=== PATIENT | male | born 1975 | race African-American/Black ===

== ENCOUNTER 2021-09-19 13:13 | Outpatient (REF) | payer BC, SELFPAY ==
--- NOTE | ~2021-09-19 | XR_ITS ---
EXAMINATION: XR KNEE, LEFT CLINICAL INFORMATION: Synovial cyst of popliteal space. COMPARISON: None TECHNIQUE: Four views of the left knee. FINDINGS: No acute fractures or malalignment. No significant degenerative changes. No erosions or chondrocalcinosis. Indeterminate soft tissue fullness in the popliteal region, posterior compartment of the knee. Small joint effusion. XR/XR knee LT 3V IMPRESSION: No acute osseous abnormalities. Nonspecific soft tissue fullness in the posterior compartment of the knee, recommend correlation with a targeted ultrasound or MR. Small joint effusion.
[2021-09-19 14:32] LABS: Alanine Aminotransferase 65 U/L (0-40); Albumin Level 4.7 g/dL (3.5-5.0); Alkaline Phosphatase 67 U/L (39-117); Anion Gap 16 (12-20); Aspartate Amino Transferase 37 U/L (5-37); Bilirubin Total 0.9 mg/dL (0.0-1.0); Blood Urea Nitrogen 12 mg/dL (9-16); Calcium 10.2 mg/dL (8.4-10.2); Carbon Dioxide 27 mmol/L (22-29); Chloride 102 mmol/L (96-108); Cholesterol 211 mg/dL; Estimated Glomerular Filt Rate > 60; Glucose Fasting 94 mg/dL (60-99); HDL Cholesterol 51 mg/dL; LDL Cholesterol Calculated 146 mg/dl; Potassium 4.7 mmol/L (3.3-5.1); Sodium 140 mmol/L (135-145); Total Protein 8.1 g/dL (6.5-8.0); Triglycerides 74 mg/dL
[2021-09-19 14:50] LABS: Prostate Specific Antigen Scr 0.48 ng/mL (<0.05-4.0); TSH reflex Free T4 0.87 uIU/mL (0.32-4.0)
== END 2021-09-19 13:14 | disposition home or self-care (01) ==
LOC: HO.XRAY 13:13
PROVIDERS: PCP Physician Assistant; Visit Provider Physician Assistant
DX: Z12.5 Encounter for screening for malignant neoplasm of prostate (principal); Z13.29 Encounter for screening for other suspected endocrine disorder; Z13.220 Encounter for screening for lipoid disorders; M71.20 Synovial cyst of popliteal space [Baker], unspecified knee
CPT/HCPCS: 36415; 73562; 80053; 80061; 84153; 84443

== ENCOUNTER 2022-01-21 10:15 | Outpatient (REF) | payer BC, SELFPAY ==
--- NOTE | ~2022-01-21 | US_ITS ---
EXAMINATION: US ABDOMEN COMPLETE CLINICAL INFORMATION: Abnormal levels of other serum enzymes. COMPARISON: None TECHNIQUE: Real-time imaging of the abdominal viscera. FINDINGS: PANCREAS: The head and body of the pancreas are normal. The tail is not well visualized due to bowel gas. ABDOMINAL AORTA: The proximal, mid, and distal segments are normal in caliber. INFERIOR VENA CAVA: Visualized portions are normal. LIVER: Normal. The liver is normal in size. The liver contour is normal. Parenchymal echogenicity is normal. No focal hepatic lesion. There is no intrahepatic biliary duct dilatation seen. GALLBLADDER: There is minimal linear echogenic debris seen in the gallbladder. The gallbladder is otherwise normal. No gallstones are seen. COMMON BILE DUCT: Normal in caliber measuring 0.2 cm in diameter. RIGHT KIDNEY: Normal. No hydronephrosis. No renal calculi or focal parenchymal lesions. The kidney measures 10.2 cm in maximum dimension. LEFT KIDNEY: Normal. No hydronephrosis. No renal calculi or focal parenchymal lesions. The kidney measures 11.4 cm in maximum dimension. SPLEEN: Normal. The spleen measures 8.5 cm in maximum dimension. FREE FLUID: None. US/US abdomen complete IMPRESSION: Limited visualization of the tail the pancreas otherwise unremarkable exam.
== END 2022-01-21 10:16 | disposition home or self-care (01) ==
LOC: HO.US 10:15
PROVIDERS: Visit Provider Physician Assistant
DX: R74.8 Abnormal levels of other serum enzymes (principal)
CPT/HCPCS: 76700

== ENCOUNTER 2022-11-26 14:16 | Outpatient (AMB) | payer BC, SELFPAY ==
[2022-11-26 14:36] VITALS: BP 118/80; PULSE 65; O2SAT 98; BMI 23.3
--- NOTE | 2022-11-26 14:36 | A.OFFPC_ITS ---
Vital Signs 11/26/22 14:36 Height 6 ft 3 in Weight 186 lb 4 oz BMI 23.3 BP 118/80 Blood Pressure Location Lt brachial Position Sitting Pulse 65 Pulse Source Pulse Oximeter Pulse Oximetry (%) 98 Oxygen Delivery Method Room Air Intake Visit Reasons: PE Intake Note: Patient is here today for a physical. Parking Officer Required: No Accompanied by: Friend-Mike Allergies No Known Allergies Allergy (Verified 11/26/22 15:01) Medication List - Last Reconciled 11/26/22 by Salo Lerner PA-C No Known Home Meds Tobacco use date assessed: 11/26/22 Dental Screening Dental Screen Date: 11/26/22 Did you have a dental visit in the last 12 months?: Yes Did you have a dental problem in the last 6 months where you did not have access to dental care?: No Was dental information given to patient?: Patient has dentist HPI PE HPI Details Patient is a 47-year-old male here today for routine annual physical. Patient has a past medical history significant for borderline high cholesterol, elevated liver enzymes. 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 Has had attempts on removal in the past though have grown back. .. Elevated liver enzymes: Unclear etiology to patient's elevated liver enzyme, was sent for ultrasound abdomen which did not show any evidence of fatty liver disease. .. Borderline high total cholesterol: Continues to work on low-cholesterol diet. No medication warranted at this time. Colon cancer screening: Considering Cologuard or colonoscopy. Will call to let us now. 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 1. Little interest or pleasure in doing things: not at all 2. Feeling down, depressed, or hopeless: not at all 3. Trouble falling or staying asleep, or sleeping too much: not at all 4. Feeling tired or having little energy: not at all 5. Poor appetite or overeating: not at all 6. Feeling bad about yourself - or that you are a failure or have let yourself or your family down: not at all 7. Trouble concentrating on things, such as reading the newspaper or watching television: not at all 8. Moving or speaking so slowly that other people could have noticed. Or the opposite - being so fidgety or restless that you have been moving around a lot more than usual: not at all 9. Thoughts that you would be better off or of hurting yourself in some wa y: not at all Total score: 0 Depression Screening Interpretation: Negative 77746 - PHQ-9 Billing: Yes Source: Developed by Drs. Xavier Nguyễn, Tonia Marie, Elian Frank and colleagues, with an educational lucy from [employer] Thrive Questionnaire Date Thrive assessed: 11/26/22 I am a: Patient What is your living situation today?: I have a steady place to live Within the past 12 months, did the food you bought not last and you didn't have the money to get more?: Never true Within the past 12 months, did you worry whether your food would run out before you got money to buy more?: Never true Do you have trouble paying for medicines?: No Do you have trouble getting transportation to medical appointments?: No Do you have trouble paying your heating and electricity bill?: No Do you have trouble taking care of your child, family member or friend?: No Do you have trouble with day-to-day activities such as bathing, preparing meals, shopping, managing finances, etc.?: No Are you currently unemployed and looking for a job?: No Are you interested in more education?: No Currently or been in a relationship where the following occur: no concerns reported AUDIT C Alcohol Use Questionnaire (AUDIT-C) 1. How often do you have a drink containing alcohol?: Never 3. How often do you have six or more drinks on one occasion?: Never Total Score: 0 JOSE-7 AMB Questionnaire JOSE-7 Date JOSE - 7 assessed: 11/26/22 Feeling nervous, anxious, or on edge: 0 = Not at all Not being able to stop or control worryin = Not at all Worrying too much about different things: 0 = Not at all Trouble relaxin = Not at all Being so restless that it is hard to sit still: 0 = Not at all Becoming easily annoyed or irritable: 0 = Not at all Feeling afraid as if something awful might happen: 0 = Not at all Total JOSE-7 score (0-4 normal; 5-9 mild; 10-14 moderate; 15-21 severe): 0 Source: Developed by Drs. Xavier Nguyễn, Tonia Marie, Elian Frank and colleagues, with an educational lucy from [employer] OJSE-7 Assessment Billing JOSE-7 Assessment Tool: JOSE-7 Assessment 61302 Review of Systems Const Denies body aches, Denies chills, Denies excessive sweating, Denies fatigue, Denies fever(s) and Denies headache(s) Eyes Denies blurry vision ENT Denies dysphagia, Denies vertigo, Denies dizziness, Denies headache(s), Denies hearing loss and Denies tinnitus Card Denies chest pain, Denies chest pain with activity, Denies syncope, Denies irregular heart rhythm and Denies dyspnea Resp Denies chest congestion, Denies cough, Denies hemoptysis, Denies dyspnea and Denies wheezing GI Denies abdominal pain, Denies melena, Denies hematochezia, Denies coffee ground emesis, Denies dysphagia, Denies diarrhea, Denies nausea and Denies vomiting Denies difficulty urinating, Denies dysuria, Denies urinary frequency, Denies urinary hesitancy and Denies urinary urgency Musc Denies arthralgias, Denies limited range of motion, Denies muscle cramps and Denies muscle weakness Skin/Breast Denies rash and Denies skin ulcer Neuro Denies Abnormal speech present, Denies confusion, Denies vertigo, Denies dizziness, Denies syncope, Denies headache(s), Denies memory loss and Denies seizure-like activity Psych Denies anxiety, Denies confusion, Denies depression, Denies memory loss, Denies panic attacks and Denies paranoia Endo Denies excessive sweating, Denies fatigue, Denies flushing, Denies polydipsia and Denies polyuria Aller/Immun Denies wheezing Physical exam (Primary Care) Vital Signs: Last Vital Signs Pulse 65 11/26/22 14:36 BP 118/80 11/26/22 14:36 Pulse Ox 98 11/26/22 14:36 Oxygen Delivery Method Room Air 11/26/22 14:36 BMI result Body Mass Index 23.3 Tobacco/Smoking Status: Tobacco use Status Tobacco use date assessed 11/26/22 11/26/22 14:52 Patient Tobacco Use Status Never used Tobacco 11/26/22 14:36 e-Cigarette/Vaping Use Never Used 11/26/22 14:36 PHQ-9: PHQ-9 Score PHQ-9: Total score 0 11/26/22 14:52 Depression Screening Interpretation: Negative Thrive Assessment: Date of Thrive Assessment Date Thrive assessed 11/26/22 11/26/22 14:52 Currently or been in a relationship where the following occur: no concerns reported Const General: cooperative, comfortable, no acute distress, alert and awake; No confusion Orientation/consciousness: oriented to person, oriented to place, patient oriented x3 and No confusion HENMT Head: Yes normocephalic Ears: external ears normal and TM's normal bilaterally Face and sinus: No sinus tenderness Mouth: Normal oral and palatal mucosa present and tongue normal Teeth and gingiva: dentition normal and gingiva normal Throat: Yes posterior oropharynx normal, Yes tonsils normal and Yes uvula midline Eyes Conjunctivae: conjunctivae normal Sclerae: sclerae normal Pupils: Equal, round and reactive pupils present EOM: EOMs intact bilaterally Direct Ophthalmoscopy: No no photophobia Neck Neck: Yes no lymphadenopathy, No tender and Yes no JVD Thyroid: Thyroid normal Carotids: no bruits Chest Chest palpation & inspection: no tenderness Resp Effort & Inspection: normal respiratory effort, no audible wheezes, not labored and no stridor Auscultation: no crackles, no rales, no rhonchi and no wheezes Cardio Jugular venous distension: no JVD Rate: regular rate, not bradycardic and not tachycardic Rhythm: regular rhythm Bruits: no carotid bruits Peripheral pulses: Peripheral pulses 2+ throughout GI Inspection: Yes normal to inspection, No abdominal wall ecchymosis and No visible herniation Palpation (GI): Soft to palpation, nontender, no guarding, not rigid and No hepatosplenomegaly present Auscultation: normoactive bowel sounds General: Yes no CVA tenderness Back/Spine/Pelvis Back: no CVA tenderness and No back tenderness Cervical Spine: cervical ROM normal Thoracic/Lumbar Spine: thoracic and lumbar spine normal to inspection, straight leg raise negative bilaterally, No thoraco-lumbar ROM limited and No lumbar spinal tenderness Skin Lesions: no lesions Rashes: no rashes Wounds: no wounds Neuro General: oriented to person, oriented to place, patient oriented x3, CN's II-XI intact bilaterally and No confusion Cranial nerves: Yes Equal, round and reactive pupils present and Yes Normal accommodation reflex present Cognition (Neuro): normal cognition Speech: No Abnormal speech present Gait exam (Neuro): Normal gait present Motor exam (neuro): 5/5 motor strength present throughout Extrem Right upper extremity: full ROM; no cyanosis Left upper extremity: full ROM; no cyanosis Right lower extremity: no edema Left lower extremity: no edema Psych Appearance: grossly normal Mental Status: mental status grossly normal Affect: normal affect Attitude: cooperative Thought process: Normal thought process present Assessment and Plan Assessment & Plan (1) Annual physical exam: Code(s): Z00.00 - Encounter for general adult medical examination without abnormal findings (2) Pterygium: Code(s): H11.009 - Unspecified pterygium of unspecified eye Qualifiers: Laterality: bilateral Qualified Code(s): H11.003 - Unspecified pterygium of eye, bilateral Plan: As per HPI patient continues to suffer with pterygium bilaterally and would like to see an eye surgeon for permanent removal. (3) Borderline high cholesterol: Code(s): E78.9 - Disorder of lipoprotein metabolism, unspecified Plan: Patient's most recent lipid panel showing borderline elevated total cholesterol. Advised to continue working on lifestyle/ diet modifications (4) Elevated liver enzymes: Code(s): R74.8 - Abnormal levels of other serum enzymes Orders: Orders Prostate Specific Antigen Scr Today Z12.5 - Encounter for screening for malignant neoplasm of prostate Comprehensive [place]. Panel Fast Today E78.9 - Disorder of lipoprotein metabolism, unspecified Lipid Panel Today E78.9 - Disorder of lipoprotein metabolism, unspecified Referrals Ophthalmology Referral H11.003 - Unspecified pterygium of eye, bilateral Coding Level of Care Code Est Pt Prev Care 40-64y(64697) Diagnoses Annual physical exam Z00.00 Pterygium H11.003 Laterality: bilateral Borderline high cholesterol E78.9 Elevated liver enzymes R74.8 Additional Codes JOSE-7 Assessment Billing - JOSE-7 Assessment Tool: JOSE-7 Assessment [id number] ([id number])
== END 2022-11-26 15:25 | disposition home or self-care (01) ==
PROVIDERS: PCP Physician Assistant; Visit Provider Physician Assistant
DX: Z00.00 Encounter for general adult medical examination without abnormal findings (principal); H11.003 Unspecified pterygium of eye, bilateral; E78.9 Disorder of lipoprotein metabolism, unspecified; R74.8 Abnormal levels of other serum enzymes
CPT/HCPCS: 99396

== ENCOUNTER 2022-12-17 07:36 | Outpatient (REF) | payer BC, SELFPAY ==
[2022-12-17 12:14] LABS: Alanine Aminotransferase 34 U/L (0-40); Albumin Level 4.7 g/dL (3.5-5.0); Alkaline Phosphatase 67 U/L (39-117); Anion Gap 14 (12-20); Aspartate Amino Transferase 26 U/L (5-37); Bilirubin Total 0.7 mg/dL (0.0-1.0); Blood Urea Nitrogen 9 mg/dL (9-16); Calcium 9.8 mg/dL (8.4-10.2); Carbon Dioxide 29 mmol/L (22-29); Chloride 101 mmol/L (96-108); Cholesterol 202 mg/dL (<200); Estimated Glomerular Filt Rate > 60; Glucose Fasting 102 mg/dL (60-99); HDL Cholesterol 49 mg/dL (>40); LDL Cholesterol Calculated 135 mg/dL (<100); Potassium 3.8 mmol/L (3.3-5.1); Sodium 140 mmol/L (135-145); Total Protein 7.9 g/dL (6.5-8.0); Triglycerides 90 mg/dL (<150)
[2022-12-17 12:30] LABS: Prostate Specific Antigen Scr 0.93 ng/mL (<0.05-4.0)
== END 2022-12-17 07:37 | disposition home or self-care (01) ==
LOC: HO.HMGCLDS 07:36
PROVIDERS: PCP Physician Assistant; Visit Provider Physician Assistant
DX: Z12.5 Encounter for screening for malignant neoplasm of prostate (principal); E78.9 Disorder of lipoprotein metabolism, unspecified
CPT/HCPCS: 36415; 80053; 80061; 84153

== ENCOUNTER → 2023-09-15 07:22 | Outpatient (REF) | payer BC, SELFPAY ==
--- NOTE | 2023-09-15 07:27 | ECG_ITS ---
Test Reason : pre op Blood Pressure : / mmHG Vent. Rate : 066 BPM Atrial Rate : 066 BPM P-R Int : 160 ms QRS Dur : 098 ms QT Int : 380 ms P-R-T Axes : 070 037 064 degrees QTc Int : 398 ms Normal sinus rhythm Normal ECG No previous ECGs available Referred By: Salo Lerner Electronically Signed By:AYAH ARANGO
== END ==
LOC: HO.CARD 07:22
PROVIDERS: PCP Physician Assistant; Visit Provider Physician Assistant
DX: Z01.818 Encounter for other preprocedural examination (principal)
CPT/HCPCS: 93005

== ENCOUNTER → 2023-09-15 07:27 | Outpatient (BNV) | payer BC, SELFPAY | PROVIDERS: PCP Physician Assistant; Visit Provider Internal Medicine | DX: Z01.818 Encounter for other preprocedural examination (principal) | CPT/HCPCS: 93010 ==

== ENCOUNTER 2023-10-01 12:45 | Outpatient (AMB) | payer BC, SELFPAY ==
[2023-10-01 13:02] VITALS: BP 122/76; PULSE 74; O2SAT 98; BMI 22.7
--- NOTE | 2023-10-01 13:02 | A.OFFPC_ITS ---
Vital Signs 10/01/23 13:02 Height 6 ft 3 in Weight 182 lb BMI 22.7 BP 122/76 Blood Pressure Location Lt brachial Position Sitting Pulse 74 Pulse Source Pulse Oximeter Pulse Oximetry (%) 98 Oxygen Delivery Method Room Air Intake Visit Reasons: Right eye surgery scheduled w/ 10/12 Allergies No Known Allergies Allergy (Verified 10/01/23 13:09) Medication List - Last Reconciled 10/01/23 by Salo Lerner PA-C No Known Home Meds Tobacco use date assessed: 10/01/23 Dental Screening Dental Screen Date: 10/01/23 Did you have a dental visit in the last 12 months?: Yes Did you have a dental problem in the last 6 months where you did not have access to dental care?: No Was dental information given to patient?: Patient has dentist HPI Right eye surgery scheduled w/ 10/12 HPI Details Patient is a 48-year-old male here today for preop visit. Patient is due for right eye surgery 10/13/2023. Patient has a past medical history significant for borderline high cholesterol, elevated liver enzymes. Patient has no past medical history significant for CVA, mi or Congestive heart failure. Patient does not take any medications at this time. Most recent EKG G showing normal sinus rhythm. Has had previous eye surgery to remove fibrous tissue though was not effective and grew back. .. .. Borderline high total cholesterol: Continues to work on low-cholesterol diet. No medication warranted at this time. [facility] Medical History Primary immunodeficiency with trpr-ggoujxz-zntpp-rubella (MMR) vaccine viral infection Family History Mother Type II diabetes mellitus Father Prostate cancer Social History Housing: House Alcohol intake: current Alcohol intake frequency: holidays/special occasions only Alcohol type: beer Patient Tobacco Use Status: Never used Tobacco e-Cigarette/Vaping Use: Never Used service: No Current occupational status: employed 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 Cognitive needs: No Hearing needs: No Vision needs: No Questionnaire PHQ-9 Over the last 2 weeks, how often have you been bothered by any of the following problems? 1. Little interest or pleasure in doing things: not at all 2. Feeling down, depressed, or hopeless: not at all 3. Trouble falling or staying asleep, or sleeping too much: not at all 4. Feeling tired or having little energy: not at all 5. Poor appetite or overeating: not at all 6. Feeling bad about yourself - or that you are a failure or have let yourself or your family down: not at all 7. Trouble concentrating on things, such as reading the newspaper or watching television: not at all 8. Moving or speaking so slowly that other people could have noticed. Or the opposite - being so fidgety or restless that you have been moving around a lot more than usual: not at all 9. Thoughts that you would be better off or of hurting yourself in some way: not at all Total score: 0 Depression Screening Interpretation: Negative Depression Screening Done: Yes 62588 - PHQ-9 Billing: Yes Source: Developed by Drs. Xavier Nguyễn, Tonia Marie, Elian Frank and colleagues, with an educational lucy from [email or web address]. Thrive Questionnaire Date Thrive assessed: 10/01/23 I am a: Patient What is your living situation today?: I have a steady place to live Within the past 12 months, did the food you bought not last and you didn't have the money to get more?: Never true Within the past 12 months, did you worry whether your food would run out before you got money to buy more?: Never true Do you have trouble paying for medicines?: No Do you have trouble getting transportation to medical appointments?: No Do you have trouble paying your heating and electricity bill?: No Do you have trouble taking care of your child, family member or friend?: No Do you have trouble with day-to-day activities such as bathing, preparing meals, shopping, managing finances, etc.?: No Are you currently unemployed and looking for a job?: No Are you interested in more education?: No Currently or been in a relationship where the following occur: no concerns reported THRIVE Score: 0 AUDIT C Alcohol Use Questionnaire (AUDIT-C) 1. How often do you have a drink containing alcohol?: Never 3. How often do you have six or more drinks on one occasion?: Never Total Score: 0 OJSE-7 AMB Questionnaire JOSE-7 Date JOSE - 7 assessed: 10/01/23 Feeling nervous, anxious, or on edge: 0 = Not at all Not being able to stop or control worryin = Not at all Worrying too much about different things: 0 = Not at all Trouble relaxin = Not at all Being so restless that it is hard to sit still: 0 = Not at all Becoming easily annoyed or irritable: 0 = Not at all Feeling afraid as if something awful might happen: 0 = Not at all Total JOSE-7 score (0-4 normal; 5-9 mild; 10-14 moderate; 15-21 severe): 0 Source: Developed by Drs. Xavier Nguyễn, Tonia Marie, Elian Frank and colleagues, with an educational lucy from [email or web address]. JOSE-7 Assessment Billing JOSE-7 Assessment Tool: JOSE-7 Assessment 24641 Review of Systems Const Denies headache(s) Eyes Denies loss of vision ENT Denies vertigo, Denies dizziness, Denies headache(s) and Denies sore throat Card Denies chest pain, Denies leg edema and Denies lightheadedness Resp Denies cough, Denies hemoptysis and Denies wheezing GI Denies abdominal pain, Denies melena, Denies constipation, Denies diarrhea and Denies vomiting Denies dysuria, Denies urinary frequency and Denies urinary urgency Musc Denies arthralgias, Denies joint swelling, Denies numbness and Denies tingling Neuro Denies Abnormal speech present, Denies behavioral changes, Denies vertigo, Denies dizziness, Denies headache(s), Denies loss of vision, Denies memory loss, Denies numbness and Denies tingling Psych Denies anxiety, Denies behavioral changes, Denies depression, Denies memory loss and Denies panic attacks Edi/Lymph Denies easy bleeding and Denies easy bruising Aller/Immun Denies wheezing Physical exam (Primary Care) Vital Signs: Last Vital Signs Pulse 74 10/01/23 13:02 BP 122/76 10/01/23 13:02 Pulse Ox 98 10/01/23 13:02 Oxygen Delivery Method Room Air 10/01/23 13:02 BMI result Body Mass Index 22.7 Tobacco/Smoking Status: Tobacco use Status Tobacco use date assessed 10/01/23 10/01/23 13:07 Patient Tobacco Use Status Never used Tobacco 10/01/23 13:07 e-Cigarette/Vaping Use Never Used 10/01/23 13:07 PHQ-9: PHQ-9 Score PHQ-9: Total score 0 10/01/23 13:11 Depression Screening Interpretation: Negative Thrive Assessment: Date of Thrive Assessment Date Thrive assessed 10/01/23 10/01/23 13:07 Currently or been in a relationship where the following occur: no concerns reported Const General: healthy appearing, no acute distress, alert and awake Nutritional Appearance: well nourished Orientation/consciousness: oriented to person, oriented to place and oriented to time HENMT Ears: TM's normal bilaterally General nose exam: Normal nasal mucous membranes and turbinates present Eyes Other: Notable right eye fibrous tissue Conjunctivae: abnormal conjunctivae Sclerae: abnormal sclerae Pupils: Equal, round and reactive pupils present Neck Neck: Yes no lymphadenopathy and Yes no JVD Thyroid: Thyroid normal Carotids: no bruits Resp Effort & Inspection: normal respiratory effort and not tachypneic Auscultation: no crackles, no rales, no rhonchi and no wheezes Cardio Rate: regular rate Rhythm: regular rhythm Heart sounds: no murmurs and normal S1 and S2 GI Palpation (GI): Soft to palpation, nontender, no hepatomegaly and no splenomegaly Auscultation: normal bowel sounds Skin General skin exam: no rashes or lesions noted and dry skin Neuro General: oriented to person, oriented to place and oriented to time Cranial nerves: Yes Equal, round and reactive pupils present Speech: No Abnormal speech present Gait exam (Neuro): Normal gait present Motor exam (neuro): no tremor noted Extrem Right upper extremity: full ROM Left upper extremity: full ROM Right lower extremity: full ROM; no edema Left lower extremity: full ROM; no edema Psych Mental Status: mental status grossly normal Speech and movement: Normal speech and movement present Affect: normal affect Attitude: cooperative Thought process: Normal thought process present Assessment and Plan Assessment & Plan (1) Pre-op evaluation: Code(s): Z01.818 - Encounter for other preprocedural examination Plan: Patient's Vitals and labs are stable. EKG showing normal sinus rhythm. Patient medically clear for needed right eye surgery (2) Pterygium: Code(s): H11.009 - Unspecified pterygium of unspecified eye Qualifiers: Laterality: bilateral Qualified Code(s): H11.003 - Unspecified pteryg ium of eye, bilateral Plan: As above Orders: Orders Comprehensive [place]. Panel Fast 3 Months E78.9 - Disorder of lipoprotein metabolism, unspecified Complete Blood Count no Diff 3 Months E78.9 - Disorder of lipoprotein metabolism, unspecified Prostate Specific Antigen Scr 3 Months E78.9 - Disorder of lipoprotein metabolism, unspecified, Z12.5 - Encounter for screening for malignant neoplasm of prostate Lipid Panel 3 Months E78.9 - Disorder of lipoprotein metabolism, unspecified Coding Level of Care Code Est Pt Level 3 (84244) Diagnoses Pre-op evaluation Z01.818 Pterygium of both eyes H11.003 Laterality: bilateral Additional Codes JOSE-7 Assessment Billing - JOSE-7 Assessment Tool: JOSE-7 Assessment [id number] ([id number])
== END 2023-10-01 13:26 | disposition home or self-care (01) ==
PROVIDERS: PCP Physician Assistant; Visit Provider Physician Assistant
DX: H11.003 Unspecified pterygium of eye, bilateral (principal); Z01.818 Encounter for other preprocedural examination
CPT/HCPCS: 99213

== ENCOUNTER 2023-10-01 13:30 | Outpatient (REF) | payer BC, SELFPAY ==
[2023-10-01 14:02] LABS: Hematocrit 42.9 % (42.0-52.0); Hemoglobin 14.7 g/dl (14.0-18.0); Mean Corpuscular HGB Conc 34.3 g/dl (31.0-36.0); Mean Corpuscular Hemoglobin 30.4 pg (27.0-33.0); Mean Corpuscular Volume 88.6 fL (80.0-98.0); Mean Platelet Volume 10.6 fL (9.4-12.4); Platelet Count 237 X10*3/uL (160-400); Red Blood Count 4.84 X10*6/uL (4.60-5.80); Red Cell Distribution Width 12.4 % (11.0-16.0); White Blood Count 5.5 X10*3/uL (4.8-10.8)
[2023-10-01 14:27] LABS: Anion Gap 9 (12-20); Blood Urea Nitrogen 12 mg/dL (9-16); Calcium 9.8 mg/dL (8.4-10.2); Carbon Dioxide 30 mmol/L (22-29); Chloride 102 mmol/L (96-108); Estimated Glomerular Filt Rate > 60; Glucose Random 89 mg/dL (60-115); Potassium 4.2 mmol/L (3.3-5.1); Sodium 137 mmol/L (135-145)
== END 2023-10-01 13:31 | disposition home or self-care (01) ==
LOC: HO.LAB 13:30
PROVIDERS: PCP Physician Assistant; Visit Provider Physician Assistant
DX: Z01.812 Encounter for preprocedural laboratory examination (principal)
CPT/HCPCS: 36415; 80048; 85027

== ENCOUNTER 2024-01-06 14:12 | Outpatient (AMB) | payer BC, SELFPAY ==
--- NOTE | 2024-01-06 14:22 | MHC.PC.OV ---
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 .. Borderline high total cholesterol: Continues to work on low-cholesterol diet. No medication warranted at this time. 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 1. Little interest or pleasure in doing things: not at all 2. Feeling down, depressed, or hopeless: not at all 3. Trouble falling or staying asleep, or sleeping too much: not at all 4. Feeling tired or having little energy: not at all 5. Poor appetite or overeating: not at all 6. Feeling bad about yourself - or that you are a failure or have let yourself or your family down: not at all 7. Trouble concentrating on things, such as reading the newspaper or watching television: not at all 8. Moving or speaking so slowly that other people could have noticed. Or the opposite - being so fidgety or restless that you have been moving around a lot more than usual: not at all 9. Thoughts that you would be better off or of hurting yourself in some way: not at all Total score: 0 Depression Screening Interpretation: Negative Depression Screening Done: Yes 88070 - PHQ-9 Billing: Yes Source: Developed by Drs. Xavier Nguyễn, Tonia Marie, Elian Frank and colleagues, with an educational lucy from [employer]. Thrive Questionnaire Date Thrive assessed: 01/05/24 I am a: Patient What is your living situation today?: I have a steady place to live Within the past 12 months, did the food you bought not last and you didn't have the money to get more?: Never true Within the past 12 months, did you worry whether your food would run out before you got money to buy more?: Never true Do you have trouble paying for medicines?: No Do you have trouble getting transportation to medical appointments?: No Do you have trouble paying your heating and electricity bill?: No Do you have trouble taking care of your child, family member or friend?: No Do you have trouble with day-to-day activities such as bathing, preparing meals, shopping, managing finances, etc.?: No Are you currently unemployed and looking for a job?: No Are you interested in more education?: I choose not to answer this question Please select the resources that you would like help with: None Currently or been in a relationship where the following occur: No concerns reported THRIVE Score: 0 AUDIT C Alcohol Use Questionnaire (AUDIT-C) 1. How often do you have a drink containing alcohol?: Never 2. How many drinks containing alcohol do you have on a typical day when you are drinking?: 1 or 2 3. How often do you have six or more drinks on one occasion?: Never Total Score: 0 JOSE-7 AMB Questionnaire JOSE-7 Date JOSE - 7 assessed: 01/06/24 Feeling nervous, anxious, or on edge: 0 = Not at all Not being able to stop or control worryin = Not at all Worrying too much about different things: 0 = Not at all Trouble relaxin = Not at all Being so restless that it is hard to sit still: 0 = Not at all Becoming easily annoyed or irritable: 0 = Not at all Feeling afraid as if something awful might happen: 0 = Not at all Total JOSE-7 score (0-4 normal; 5-9 mild; 10-14 moderate; 15-21 severe): 0 Source: Developed by Drs. Xavier Nguyễn, Tonia Marie, Elian Frank and colleagues, with an educational lucy from [employer]. JOSE-7 Assessment Billing JOSE-7 Assessment Tool: JOSE-7 Assessment 15925 Review of Systems Const Denies body aches, Denies chills, Denies excessive sweating, Denies fatigue, Denies fever(s) and Denies headache(s) Eyes Denies blurry vision ENT Denies dysphagia, Denies vertigo, Denies dizziness, Denies headache(s), Denies hearing loss and Denies tinnitus Card Denies chest pain, Denies chest pain with activity, Denies syncope, Denies irregular heart rhythm and Denies dyspnea Resp Denies chest congestion, Denies cough, Denies hemoptysis, Denies dyspnea and Denies wheezing GI Denies abdominal pain, Denies melena, Denies hematochezia, Denies coffee ground emesis, Denies dysphagia, Denies diarrhea, Denies nausea and Denies vomiting Denies difficulty urinating, Denies dysuria, Denies urinary frequency, Denies urinary hesitancy and Denies urinary urgency Musc Denies arthralgias, Denies limited range of motion, Denies muscle cramps and Denies muscle weakness Skin/Breast Denies rash and Denies skin ulcer Neuro Denies Abnormal speech present, Denies confusion, Denies vertigo, Denies dizziness, Denies syncope, Denies headache(s), Denies memory loss and Denies seizure-like activity Psych Denies anxiety, Denies confusion, Denies depression, Denies memory loss, Denies panic attacks and Denies paranoia Endo Denies excessive sweating, Denies fatigue, Denies flushing, Denies polydipsia and Denies polyuria Aller/Immun Denies wheezing Physical exam (Primary Care) Vital Signs: Last Vital Signs Pulse 65 01/06/24 14:28 BP 120/84 01/06/24 14:28 Pulse Ox 100 01/06/24 14:28 Oxygen Delivery Method Room Air 01/06/24 14:28 BMI result Body Mass Index 23.7 Tobacco/Smoking Status: Tobacco use Status Tobacco use date assessed 10/01/23 01/06/24 14:22 Patient Tobacco Use Status Never used Tobacco 01/06/24 14:22 e-Cigarette/Vaping Use Never Used 01/06/24 14:22 PHQ-9: PHQ-9 Score PHQ-9: Total score 0 01/06/24 14:29 Depression Screening Interpretation: Negative Thrive Assessment: Date of Thrive Assessment Date Thrive assessed 01/05/24 01/06/24 14:22 Currently or been in a relationship where the following occur: No concerns reported Const General: cooperative, comfortable, no acute distress, alert and awake; No confusion Orientation/consciousness: oriented to person, oriented to place, patient oriented x3 and No confusion HENMT Head: Yes normocephalic Ears: external ears normal and TM's normal bilaterally Face and sinus: No sinus tenderness Mouth: Normal oral and palatal mucosa present and tongue normal Teeth and gingiva: dentition normal and gingiva normal Throat: Yes posterior oropharynx normal, Yes tonsils normal and Yes uvula midline Eyes Conjunctivae: conjunctivae normal Sclerae: sclerae normal Pupils: Equal, round and reactive pupils present EOM: EOMs intact bilaterally Direct Ophthalmoscopy: No no photophobia Neck Neck: Yes no lymphadenopathy, No tender and Yes no JVD Thyroid: Thyroid normal Carotids: no bruits Chest Chest palpation & inspection: no tenderness Resp Effort & Inspection: normal respiratory effort, no audible wheezes, not labored and no stridor Auscultation: no crackles, no rales, no rhonchi and no wheezes Cardio Jugular venous distension: no JVD Rate: regular rate, not bradycardic and not tachycardic Rhythm: regular rhythm Bruits: no carotid bruits Peripheral pulses: Peripheral pulses 2+ throughout GI Inspection: Yes normal to inspection, No abdominal wall ecchymosis and No visible herniation Palpation (GI): Soft to palpation, nontender, no guarding, not rigid and No hepatosplenomegaly present Auscultation: normoactive bowel sounds General: Yes no CVA tenderness Back/Spine/Pelvis Back: no CVA tenderness and No back tenderness Cervical Spine: cervical ROM normal Thoracic/Lumbar Spine: thoracic and lumbar spine normal to inspection, straight leg raise negative bilaterally, No thoraco-lumbar ROM limited and No lumbar spinal tenderness Skin Lesions: no lesions Rashes: no rashes Wounds: no wounds Neuro General: oriented to person, oriented to place, patient oriented x3, CN's II-XI intact bilaterally and No confusion Cranial nerves: Yes Equal, round and reactive pupils present and Yes Normal accommodation reflex present Cognition (Neuro): normal cognition Speech: No Abnormal speech present Gait exam (Neuro): Normal gait present Motor exam (neuro): 5/5 motor strength present throughout Extrem Right upper extremity: full ROM; no cyanosis Left upper extremity: full ROM; no cyanosis Right lower extremity: no edema Left lower extremity: no edema Psych Appearance: grossly normal Mental Status: mental status grossly normal Affect: normal affect Attitude: cooperative Thought process: Normal thought process present Assessment and Plan Assessment & Plan (1) Annual physical exam: Code(s): Z00.00 - Encounter for general adult medical examination without abnormal findings (2) Borderline high cholesterol: Code(s): E78.9 - Disorder of lipoprotein metabolism, unspecified Plan: Patient's most recent lipid panel showing borderline elevated total cholesterol. Advised to continue working on lifestyle/ diet modifications (3) Colon cancer screening: Code(s): Z12.11 - Encounter for screening for malignant neoplasm of colon Plan: Has Cologuard at home promises to do over the next 6 weeks Patient Instructions: Goal: Cholesterol to be below 200 Barriers: Adherence to healthy eating habits Coding Level of Care Code Est Pt Prev Care 40-64y(98967) Diagnoses Annual physical exam Z00.00 Borderline high cholesterol E78.9 Colon cancer screening Z12.11 Additional Codes JOSE-7 Assessment Billing - JOSE-7 Assessment Tool: JOSE-7 Assessment 60642 ([id number])
[2024-01-06 14:28] VITALS: BP 120/84; PULSE 65; O2SAT 100; BMI 23.7
== END 2024-01-06 14:52 | disposition home or self-care (01) ==
PROVIDERS: PCP Physician Assistant; Visit Provider Physician Assistant
DX: Z00.00 Encounter for general adult medical examination without abnormal findings (principal); E78.9 Disorder of lipoprotein metabolism, unspecified; Z12.11 Encounter for screening for malignant neoplasm of colon; Z13.30 Encounter for screening examination for mental health and behavioral disorders, unspecified

== ENCOUNTER → 2024-01-06 14:12 | Outpatient (BNVA) | payer BC, SELFPAY | PROVIDERS: PCP Physician Assistant; Visit Provider Physician Assistant | DX: Z00.00 Encounter for general adult medical examination without abnormal findings (principal); E78.9 Disorder of lipoprotein metabolism, unspecified | CPT/HCPCS: 96127 ==

== ENCOUNTER 2025-01-11 12:50 | Outpatient (AMB) | payer BC, SELFPAY ==
[2025-01-11 12:57] VITALS: BP 126/76; PULSE 62; RESP 18; TEMP 36.2; O2SAT 98; BMI 25.1
--- NOTE | 2025-01-11 12:57 | MHC.PC.OV ---
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 Accompanied by: Friend Allergies No Known Allergies Allergy (Verified 01/11/25 13:44) Medication List - Last Reconciled 01/11/25 by Salo Lerner PA-C No Known Home Meds Tobacco use date assessed: 01/11/25 Dental Screening Dental Screen Date: 01/11/25 Did you have a dental visit in the last 12 months?: Yes Did you have a dental problem in the last 6 months where you did not have access to dental care?: No Was dental information given to patient?: Patient has dentist HPI Annual Exam HPI Details Patient is a 49-year-old male here today for a routine annual physical Patient has a past medical history significant for borderline high cholesterol. Patient reports his brother was recently diagnosed with kidney cancer and underwent an total nephrectomy. .. Borderline high total cholesterol: Continues to work on low-cholesterol diet. No medication warranted at this time. Colorectal cancer screening: Willing to do Cologuard Vaccines: Up-to-date with COVID vaccine, tetanus vaccine, considering flu vaccine this year [facility] Medical History (Updated 01/11/25 @ 13:58 by Salo Lerner PA-C) Primary immunodeficiency with yvgh-lpxttxa-cuzps-rubella (MMR) vaccine viral infection Surgical History (Updated 01/11/25 @ 13:49 by Salo Lerner PA-C) History of excision of pterygium Family History (Updated 01/11/25 @ 13:48 by Salo Lerner PA-C) Mother Type II diabetes mellitus Father Prostate cancer Brother Kidney malignancy Social History Housing: House Alcohol intake: current Alcohol intake frequency: holidays/special occasions only Alcohol type: beer Patient Tobacco Use Status: Never used Tobacco e-Cigarette/Vaping Use: Never Used service: No Current occupational status: employed 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[employer] Cognitive needs: No Hearing needs: No Vision needs: No Questionnaire Thrive Questionnaire Date Thrive assessed: 01/05/25 I am a: Patient What is your living situation today?: I have a steady place to live Within the past 12 months, did the food you bought not last and you didn't have the money to get more?: Never true Within the past 12 months, did you worry whether your food would run out before you got money to buy more?: Never true Do you have trouble paying for medicines?: No Do you have trouble getting transportation to medical appointments?: No Do you have trouble paying your heating and electricity bill?: No Do you have trouble taking care of your child, family member or friend?: No Do you have trouble with day-to-day activities such as bathing, preparing meals, shopping, managing finances, etc.?: No Are you currently unemployed and looking for a job?: No Are you interested in more education?: No Please select the resources that you would like help with: None Currently or been in a relationship where the following occur: No concerns reported THRIVE Score: 0 AUDIT C Alcohol Use Questionnaire (AUDIT-C) 1. How often do you have a drink containing alcohol?: Never 3. How often do you have six or more drinks on one occasion?: Never Total Score: 0 JOSE-7 AMB Questionnaire JOSE-7 Date JOSE - 7 assessed: 01/06/24 Feeling nervous, anxious, or on edge: 0 = Not at all Not being able to stop or control worryin = Not at all Worrying too much about different things: 0 = Not at all Trouble relaxin = Not at all Being so restless that it is hard to sit still: 0 = Not at all Becoming easily annoyed or irritable: 0 = Not at all Feeling afraid as if something awful might happen: 0 = Not at all Total JOSE-7 score (0-4 normal; 5-9 mild; 10-14 moderate; 15-21 severe): 0 Source: Developed by Drs. Xavier Nguyễn, Tonia Marie, Elian Frank and colleagues, with an educational lucy from [email or web address]. JOSE-7 Assessment Billing JOSE-7 Assessment Tool: JOSE-7 Assessment 99281 Review of Systems Const Denies body aches, Denies chills, Denies excessive sweating, Denies fatigue, Denies fever(s) and Denies headache(s) Eyes Denies blurry vision ENT Denies dysphagia, Denies vertigo, Denies dizziness, Denies headache(s), Denies hearing loss and Denies tinnitus Card Denies chest pain, Denies chest pain with activity, Denies syncope, Denies irregular heart rhythm and Denies dyspnea Resp Denies chest congestion, Denies cough, Denies hemoptysis, Denies dyspnea and Denies wheezing GI Denies abdominal pain, Denies melena, Denies hematochezia, Denies coffee ground emesis, Denies dysphagia, Denies diarrhea, Denies nausea and Denies vomiting Denies difficulty urinating, Denies dysuria, Denies urinary frequency, Denies urinary hesitancy and Denies urinary urgency Musc Denies arthralgias, Denies limited range of motion, Denies muscle cramps and Denies muscle weakness Skin/Breast Denies rash and Denies skin ulcer Neuro Denies Abnormal speech present, Denies confusion, Denies vertigo, Denies dizziness, Denies syncope, Denies headache(s), Denies memory loss and Denies seizure-like activity Psych Denies anxiety, Denies confusion, Denies depression, Denies memory loss, Denies panic attacks and Denies paranoia Endo Denies excessive sweating, Denies fatigue, Denies flushing, Denies polydipsia and Denies polyuria Aller/Immun Denies wheezing Physical exam (Primary Care) Vital Signs: Last Vital Signs Temp 97.1 F 01/11/25 12:57 Pulse 62 01/11/25 12:57 Resp 18 01/11/25 12:57 BP 126/76 01/11/25 12:57 Pulse Ox 98 01/11/25 12:57 Oxygen Delivery Method Room Air 01/11/25 12:57 BMI result Body Mass Index 25.1 Tobacco/Smoking Status: Tobacco use Status Tobacco use date assessed 01/11/25 01/11/25 13:03 Patient Tobacco Use Status Never used Tobacco 01/11/25 13:03 e-Cigarette/Vaping Use Never Used 01/11/25 13:03 Thrive Assessment: Date of Thrive Assessment Date Thrive assessed 01/05/25 01/11/25 13:03 Currently or been in a relationship where the following occur: No concerns reported Const General: cooperative, comfortable, no acute distress, alert and awake; No confusion Orientation/consciousness: oriented to person, oriented to place, patient oriented x3 and No confusion HENMT Head: Yes normocephalic Ears: external ears normal and TM's normal bilaterally Face and sinus: No sinus tenderness Mouth: Normal oral and palatal mucosa present and tongue normal Teeth and gingiva: dentition normal and gingiva normal Throat: Yes posterior oropharynx normal, Yes tonsils normal and Yes uvula midline Eyes Conjunctivae: conjunctivae normal Sclerae: sclerae normal Pupils: Equal, round and reactive pupils present EOM: EOMs intact bilaterally Direct Ophthalmoscopy: No no photophobia Neck Neck: Yes no lymphadenopathy, No tender and Yes no JVD Thyroid: Thyroid normal Carotids: no bruits Chest Chest palpation & inspection: no tenderness Resp Effort & Inspection: normal respiratory effort, no audible wheezes, not labored and no stridor Auscultation: no crackles, no rales, no rhonchi and no wheezes Cardio Jugular venous distension: no JVD Rate: regular rate, not bradycardic and not tachycardic Rhythm: regular rhythm Bruits: no carotid bruits Peripheral pulses: Peripheral pulses 2+ throughout GI Inspection: Yes normal to inspection, No abdominal wall ecchymosis and No visible herniation Palpation (GI): Soft to palpation, nontender, no guarding, not rigid and No hepatosplenomegaly present Auscultation: normoactive bowel sounds General: Yes no CVA tenderness Back/Spine/Pelvis Back: no CVA tenderness and No back tenderness Cervical Spine: cervical ROM normal Thoracic/Lumbar Spine: thoracic and lumbar spine normal to inspection, straight leg raise negative bilaterally, No thoraco-lumbar ROM limited and No lumbar spinal tenderness Skin Lesions: no lesions Rashes: no rashes Wounds: no wounds Neuro General: oriented to person, oriented to place, patient oriented x3, CN's II-XI intact bilaterally and No confusion Cranial nerves: Yes Equal, round and reactive pupils present and Yes Normal accommodation reflex present Cognition (Neuro): normal cognition Speech: No Abnormal speech present Gait exam (Neuro): Normal gait present Motor exam (neuro): 5/5 motor strength present throughout Extrem Right upper extremity: full ROM; no cyanosis Left upper extremity: full ROM; no cyanosis Right lower extremity: no edema Left lower extremity: no edema Psych Appearance: grossly normal Mental Status: mental status grossly normal Affect: normal affect Attitude: cooperative Thought process: Normal thought process present Coding Level of Care Code Est Pt Prev Care 40-64y(64606) Diagnoses Annual physical exam Z00.00 Family history of kidney cancer Z80.51 Borderline high cholesterol E78.9 Additional Codes JOSE-7 Assessment Billing - JOSE-7 Assessment Tool: JOSE-7 Assessment 43209 ([id number]) Assessment & Plan Assessment & Plan (1) Annual physical exam: Code(s): Z00.00 - Encounter for general adult medical examination without abnormal findings Category: Medical Plan: Per HPI (2) Family history of kidney cancer: Code(s): Z80.51 - Family history of malignant neoplasm of kidney Category: Medical Plan: Patient reports his brother recently diagnosed with kidney cancer, he would like to be screened Thus will send for a urine cytology (3) Borderline high cholesterol: Code(s): E78.9 - Disorder of lipoprotein metabolism, unspecified Category: Medical Plan: Patient has a history of borderline high cholesterol, has been working on dietary modifications. Will recheck his lipid panel. Orders: Orders Comprehensive Loco. Panel Fast Today E78.9 - Disorder of lipoprotein metabolism, unspecified Prostate Specific Antigen Scr Today E78.9 - Disorder of lipoprotein metabolism, unspecified, Z12.5 - Encounter for screening for malignant neoplasm of prostate Urine Cytology Today Z80.51 - Family history of malignant neoplasm of kidney Lipid Panel Today E78.9 - Disorder of lipoprotein metabolism, unspecified Complete Blood Count no Diff Today E78.9 - Disorder of lipoprotein metabolism, unspecified UA CC w/rflx Micro + Cult Today R30.0 - Dysuria, Z80.51 - Family history of malignant neoplasm of kidney Referrals Cologuard Test Z12.11 - Encounter for screening for malignant neoplasm of colon
--- OUTSIDE RECORDS SUMMARY | 2025-01-11 15:17 | XMS_ITS ---
Author Name [facility] Organization Unknown Encounters Encounter Type Encounter Reason Primary Diagnosis Location Date Ambulatory Peripheral pterygium, stationary, bilateral Peripheral pterygium, stationary, bilateral [facility] 10/13/2023 Care Team Organization Name Specialty Phone Email Start Date End Da te [facility] 10/13/2023 07/06/2024 [facility] 09/28/2023
--- OUTSIDE RECORDS SUMMARY | 2025-01-11 15:18 | XMS_ITS | Clinical Summary ---
Author Organization [facility] Address [address] [place] [address] Care Team Providers Care Bank Worker Name Role Phone Unknown Primary Care Provider [phone] Allergies No known active allergies Medications No known medications Social History Tobacco Use Types Packs/Day Years Used Date Smoking Tobacco: Never Smokeless Tobacco: Never Tobacco Cessation:Counseling Given: Not Answered Alcohol Use Standard Drinks/Week Comments Never 0 (1 standard drink = 0.6 oz pur e alcohol) AUDIT-C Answer Date Recorded Q1: How often do you have a drink containing alcohol? Never 10/06/2023 Q2: How many drinks containi ng alcohol do you have on a typical day when you are drinking? Patient does not drink Q3: How often do you have si x or more drinks on one occasion? Never 10/06/2023 Sex and Gender Information Value Date Recorded Sex Assigned at Male 10/13/2023 11:02 AM EDT Legal Sex Male 11:37 AM EDT Gender Identity Not on file Sexual Orientation Not on file Last Filed Vital Signs Vital Sign Reading Time Taken Comments Blood Pressure 141/90 10/13/2023 3:30 PM EDT Pulse 56 10/13/2023 3:30 PM EDT Temperature 36.1 C (96.9 F) 10/13/2023 2:21 PM EDT Respiratory Rate 14 10/13/2023 3:30 PM EDT Oxygen Saturation 98% 10/13/2023 3:30 PM EDT Inhaled Oxygen Concentration - - Weight 81.6 kg (180 lb) 10/06/2023 9:25 AM EDT Height 190.5 cm (6' 3 ) 10/06/2023 9:25 AM EDT Body Mass Index 22.5 10/06/2023 9:25 AM EDT Plan of Treatment Health Maintenance Due Date Last Done Comments Hepatitis C Virus Screening 1973 HIV Screening 1986 DTaP/Tdap/Td Vaccines (1 - Tdap) 02/02/1992 Hepatitis B Vaccines (1 of 3 - 19+ 3-dose series) 01/18 Colonoscopy 2018 Pneumococcal Vaccines 50+ (1 of 1 - PCV) 2023 Zoster (Shingles) Vaccine (1 of 2) 2023 Influenza Vaccine 11/18/2024 COVID-19 Vaccine (1 - 2023- season) 2024 Medical Devices Implanted Type Area Oss Architect Device Identifier Shelf Expiration Date Model / Serial / Lot [id number] Graft Soft Tissue 2.5x2cm Amniograft A Amniotic Membrane - [id number] Implanted:Qty: 1 on 10/13/2023 by Chas Frederick MD at [facility] Tissue N/A: Eye [employer] 05/19/2025 [id number] / [id number] / Insurance [facility] - PPO Advance Directives * Full Code (Latest Code Status on File) Date Activated Date Inactivated Comments 10/13/2023 7:38 AM Care Teams Bank Worker Relationship Specialty Start Date End Date Unknown Unknow Provider Address PCP - General 10/13/23
== END 2025-01-11 14:03 | disposition home or self-care (01) ==
LOC: HO.HMCH 12:51
PROVIDERS: PCP Physician Assistant; Visit Provider Physician Assistant
DX: Z00.00 Encounter for general adult medical examination without abnormal findings (principal); Z80.51 Family history of malignant neoplasm of kidney; E78.9 Disorder of lipoprotein metabolism, unspecified

== ENCOUNTER → 2025-01-11 12:50 | Outpatient (BNVA) | payer BC, SELFPAY | PROVIDERS: PCP Physician Assistant; Visit Provider Physician Assistant | DX: Z00.00 Encounter for general adult medical examination without abnormal findings (principal); E78.00 Pure hypercholesterolemia, unspecified; Z80.51 Family history of malignant neoplasm of kidney | CPT/HCPCS: 96127 ==